=== PATIENT | female | born 1975 | race Caucasian/White ===

== ENCOUNTER 2016-06-05 22:33 | Emergency (ER) | payer BC ==
[~2016-06-05] VITALS: Ht 157.5 cm; Wt 54.5 kg
[~2016-06-05 22:33] MED LIST: BIRTH CONTROL PILL; LORTAB 5/500 501 TAB PO; PHENERGAN25 MG RC; PREDNISONE20 MG PO; ZOFRAN4 MG PO
[2016-06-05 22:39] VITALS: TEMP 97.9
[2016-06-05] MEDS ORDERED: CONCERTA18 MG PO (22:42)
[2016-06-05] MEDS ORDERED: BALZIVA 35 MCG-1 TAB PO (22:42)
[2016-06-06] MEDS ORDERED: PEPCID 20MG TAB20 MG PO (01:14)
[2016-06-06] MEDS ORDERED: PREDNISONE20 MG PO (01:14)
[2016-06-06 01:37] VITALS: BP 114/79; PULSE 112
== END 2016-06-06 01:37 | disposition home or self-care (01) ==
LOC: COL.ER 22:33
DX: T78.1XXA Other adverse food reactions, not elsewhere classified, initial encounter (principal); T78.3XXA Angioneurotic edema, initial encounter
CPT/HCPCS: J0171; J1200; J2930

== ENCOUNTER → 2017-03-23 | Outpatient (CLI) | payer BC ==
[~2017-03-23] MED LIST changes: +BALZIVA 35 MCG-1 TAB PO; +CONCERTA18 MG PO; +PEPCID 20MG TAB20 MG PO
== END ==
LOC: MC.RAD 13:02
DX: Z12.31 Encounter for screening mammogram for malignant neoplasm of breast (principal)

== ENCOUNTER → 2018-05-31 | Outpatient (CLI) | payer BC | LOC: MC.RAD 08:49 | DX: Z12.31 Encounter for screening mammogram for malignant neoplasm of breast (principal) ==

== ENCOUNTER → 2021-03-25 | Outpatient (CLI) | payer BC | LOC: MC.RAD 10:57 | DX: Z12.31 Encounter for screening mammogram for malignant neoplasm of breast (principal) ==

== ENCOUNTER → 2023-07-02 | Outpatient (CLI) | payer BC | LOC: MC.RAD 10:59 | DX: Z12.31 Encounter for screening mammogram for malignant neoplasm of breast (principal) ==